=== PATIENT | female | born 1970 | race African-American/Black ===

== ENCOUNTER 2020-05-23 13:17 | Emergency (ER) | payer SELFPAY ==
[~2020-05-23] VITALS: Ht 177.8 cm; Wt 154.0 kg
[2020-05-23 15:03] LABS: BASOPHILS % 0.8 % (0.0-2.0); EOSINOPHILS % 2.2 % (0.0-5.0); HEMATOCRIT. 36.2 % (36.0-48.0); HEMOGLOBIN. 12.2 g/dL (12.0-16.0); LYMPHOCYTES % 35.1 % (20.0-50.0); MEAN CORPUSCULAR HEMOGLOBIN 30.2 pg (28.0-32.0); MEAN CORPUSCULAR VOLUME 89.5 fL (81.0-99.0); MEAN PLATELET VOLUME 9.1 fl (7.4-10.4); NEUTROPHILS % 54.9 % (40.0-76.0); PLATELET 354 x1000/uL (130-400); RED BLOOD CELL COUNT 4.05 mill/uL (4.2-5.4); RED CELL DISTRIBUTION WIDTH 13.5 % (11.6-14.6)
[2020-05-23 15:09] LABS: CHLORIDE 107 mEq/L (98-107)
[2020-05-23 15:25] LABS: HCG SCREEN NEGATIVE
[2020-05-23 16:16] VITALS: BP 158/88
[2020-05-23 16:47] LABS: CLARITY URINE CLOUDY (CLEAR); COLOR URINE YELLOW (YELLOW); KETONES URINE NEGATIVE (NEGATIVE); LEUKOCYTE ESTERASE URINE NEGATIVE (NEGATIVE); NITRITE URINE NEGATIVE (NEGATIVE); OCCULT BLOOD URINE NEGATIVE (NEGATIVE); PH URINE 5.5 (4.5-8.0); PROTEIN URINE NEGATIVE (NEGATIVE); SPECIFIC GRAVITY URINE 1.021 (1.005-1.030); UROBILINOGEN URINE 0.2 E.U./dL (0.2-1.0)
[2020-05-23 16:54] LABS: *AMPHETAMINES SCREEN URINE NEGATIVE (NEGATIVE); *BARBITURATES SCREEN URINE NEGATIVE (NEGATIVE); *BENZODIAZEPINES SCREEN URINE NEGATIVE (NEGATIVE); *COCAINE SCREEN URINE NEGATIVE (NEGATIVE); OPIATES URINE SCREEN NEGATIVE (NEGATIVE); PHENCYCLIDINE URINE SCREEN NEGATIVE (NEGATIVE)
[2020-05-23 16:55] LABS: METHADONE URINE SCREEN NEGATIVE (NEGATIVE)
[2020-05-23 16:58] LABS: CANNABINOID URINE SCREEN PRESUMTIVE POSITIVE (NEGATIVE)
== END 2020-05-23 16:26 | disposition home or self-care (01) ==
LOC: ER 13:17
DX: R00.2 Palpitations (principal); I10 Essential (primary) hypertension; E11.9 Type 2 diabetes mellitus without complications
CPT/HCPCS: 36415; 71045; 80053; 80305; 81003; 83735; 84443; 84484; 84703; 85025; 85379; 93005; 99285

== ENCOUNTER 2021-05-25 11:55 | Emergency (ER) | payer MEDICAID ==
[~2021-05-25] VITALS: Ht 177.8 cm; Wt 156.0 kg
[2021-05-25 12:06] VITALS: BP 174/78
== END 2021-05-25 14:31 | disposition left against medical advice (07) ==
LOC: ER 12:08
DX: R00.2 Palpitations (principal); E11.9 Type 2 diabetes mellitus without complications; E78.00 Pure hypercholesterolemia, unspecified; I10 Essential (primary) hypertension; Z90.710 Acquired absence of both cervix and uterus; Z90.49 Acquired absence of other specified parts of digestive tract; I49.9 Cardiac arrhythmia, unspecified
CPT/HCPCS: 71045; 93005; 99283

== ENCOUNTER 2024-07-31 13:42 | Emergency (ER) | payer MEDICAID ==
[~2024-07-31] VITALS: Ht 175.3 cm; Wt 132.0 kg
[~2024-07-31 13:42] MED LIST: GLIP5TAB22 PO; LIP40 PO; METF-414 PO; METO25TA6 PO
[2024-07-31 13:47] VITALS: O2SAT 99
[2024-07-31 14:36] LABS: BASOPHILS % 0.4 % (0.0-2.0); EOSINOPHILS % 1.9 % (0.0-5.0); HEMATOCRIT. 38.5 % (36.0-48.0); HEMOGLOBIN. 13.2 g/dL (12.0-16.0); LYMPHOCYTES % 46.3 % (20.0-50.0); MEAN CORPUSCULAR HEMOGLOBIN 30.6 pg (28.0-32.0); MEAN CORPUSCULAR HGB CONC 34.3 g/dL (31.0-37.0); MEAN CORPUSCULAR VOLUME 89.1 fL (81.0-99.0); MEAN PLATELET VOLUME 9.9 fl (7.4-10.4); MONOCYTES % 8.3 % (2.0-8.0); NEUTROPHILS % 43.1 % (40.0-76.0); PLATELET 322 x1000/uL (130-400); RED BLOOD CELL COUNT 4.32 mill/uL (4.2-5.4); RED CELL DISTRIBUTION WIDTH 13.6 % (11.6-14.6); WHITE BLOOD COUNT 8.9 x1000/uL (4.5-11.0)
[2024-07-31] MEDS: ONDANSETRON HCL 4MG/2ML INJ IV STA (14:37)
[2024-07-31] MEDS: MORPHINE SULFATE 4 MG/ML INJ (FOR IV/IM USE) IV STA (14:37)
[2024-07-31] MEDS: DIAZEPAM 5 MG/ML 2ML SYR IV ONE (14:38)
[2024-07-31 14:42] LABS: POTASSIUM 3.9 mEq/L (3.5-5.1)
[2024-07-31 14:44] LABS: CALCIUM 10.4 mg/dL (8.7-10.4)
[2024-07-31 14:48] LABS: CREATININE 1.6 mg/dL (0.6-1.0)
[2024-07-31] MEDS ORDERED: DIAZ-570 MT (16:15)
[2024-07-31] MEDS ORDERED: HYDR-4001 MT (16:15)
[2024-07-31] MEDS ORDERED: P20 PO (16:15)
[2024-07-31] MEDS: MORPHINE SULFATE 4 MG/ML INJ (FOR IV/IM USE) IV ONE (17:25)
[2024-07-31 17:46] VITALS: BP 138/68; PULSE 52; RESP 11; TEMP 36.5; O2SAT 99
== END 2024-07-31 18:05 | disposition home or self-care (01) ==
LOC: ER 13:42
DX: M54.41 Lumbago with sciatica, right side (principal); E11.9 Type 2 diabetes mellitus without complications; E78.00 Pure hypercholesterolemia, unspecified; I10 Essential (primary) hypertension; Z79.52 Long term (current) use of systemic steroids; Z79.84 Long term (current) use of oral hypoglycemic drugs; Z79.899 Other long term (current) drug therapy; Z90.49 Acquired absence of other specified parts of digestive tract; Z90.710 Acquired absence of both cervix and uterus
CPT/HCPCS: 80048; 85025; 36415; 96374; 96375; 96376; 99285; J3360; J2405; J2270; Z7610

== ENCOUNTER 2024-08-16 10:36 | Emergency (ER) | payer MEDICAID ==
[~2024-08-16] VITALS: Ht 175.3 cm; Wt 127.0 kg
[~2024-08-16 10:36] MED LIST changes: +DIAZ-570 MT; +HYDR-4001 MT; +P20 PO
[2024-08-16 10:45] VITALS: TEMP 36.9; O2SAT 100
[2024-08-16] MEDS ORDERED: TOPUD PO (12:35)
[2024-08-16 13:07] VITALS: BP 188/108; PULSE 67; RESP 18; O2SAT 100
== END 2024-08-16 13:08 | disposition home or self-care (01) ==
LOC: ER 10:36
DX: I80.8 Phlebitis and thrombophlebitis of other sites (principal); E11.9 Type 2 diabetes mellitus without complications; E78.00 Pure hypercholesterolemia, unspecified; I10 Essential (primary) hypertension; Z79.899 Other long term (current) drug therapy; Z90.49 Acquired absence of other specified parts of digestive tract; Z90.710 Acquired absence of both cervix and uterus
CPT/HCPCS: 93971; 99284